=== PATIENT | female | born 2000 | race Caucasian/White ===

== ENCOUNTER 2023-12-24 23:44 | Emergency (ER) | payer BC ==
[~2023-12-24] VITALS: Ht 160 cm; Wt 55.3 kg
[2023-12-24 23:54] VITALS: BP_SYST 134; PULSE 65; RESP 18; TEMP 98.1; O2SAT 100
[2023-12-25] MEDS ORDERED: FLUT16SP16 NS (00:11)
[2023-12-25 00:14] VITALS: BP_SYST 134; PULSE 65; RESP 18; TEMP 98.1; O2SAT 100
== END 2023-12-25 00:14 | disposition home or self-care (01) ==
LOC: SED 23:44
DX: H68.003 Unspecified Eustachian salpingitis, bilateral (principal); Z88.0 Allergy status to penicillin; Z88.1 Allergy status to other antibiotic agents; Z79.899 Other long term (current) drug therapy
CPT/HCPCS: 99282